=== PATIENT | female | born 1960 | race Caucasian/White ===

== ENCOUNTER 2019-05-22 12:28 | Emergency (ER) | payer MEDICAID ==
[~2019-05-22] VITALS: Ht 154.9 cm; Wt 65.9 kg
[2019-05-22] MEDS ORDERED: TETanus/Pertussis (Acell)/Diphther VAC/PF (Tdap-Adult) 0.5ml syringe IM ONE (13:30)
[2019-05-22] MEDS ORDERED: HYDROcodone/acetaminophen 5mg/325mg tablet PO ONE (13:30)
[2019-05-22] MEDS ORDERED: CEPH500C5 PO (14:43)
[2019-05-22] MEDS ORDERED: HYDR-4384 PO (14:43)
[2019-05-22 15:26] VITALS: BP 125/88
--- NOTE | 2019-05-22 17:17 | NUR ---
PT REMAINS IN THE ER LOBBY, UNABLE TO OBTAIN A RIDE HOME. PT LIVES IN [place] AND WAS OFFERED A RIDE TO [place] FOR THE TIME BEING WHERE SHE COULD CONTINUE TO TRY TO OBTAIN A RIDE HOME. PT REFUSED THE CAB RIDE [place]. PT REQUESTED SOMETHING TO DRINK, STATING SHE HAS HAD NOTHING TO EAT ALL DAY. PT GIVEN A JUICE BOX, APPLESAUSE AND JELLO TO TIDE HER OVER. STATED TO PT THAT IF SHE CHANGES HER MIND ABOUT A CAB RIDE [place] JUST LET ADMITTING KNOW.
== END 2019-05-22 15:28 | disposition home or self-care (01) ==
LOC: ER 12:29
DX: S52.691A Other fracture of lower end of right ulna, initial encounter for closed fracture (principal); F32.9 Major depressive disorder, single episode, unspecified; Z88.0 Allergy status to penicillin; W10.8XXA Fall (on) (from) other stairs and steps, initial encounter; Y93.89 Activity, other specified; Y92.098 Other place in other non-institutional residence as the place of occurrence of the external cause; Y99.9 Unspecified external cause status
CPT/HCPCS: 29125; 73090; 90471; 99283